=== PATIENT | female | born 1965 | race Hispanic/Latino ===

== ENCOUNTER 2019-08-10 02:17 | Emergency (ER) | payer OTHER ==
[~2019-08-10] VITALS: Ht 162.6 cm; Wt 68.0 kg
[2019-08-10] MEDS ORDERED: SODIUM CHLORIDE 0.9% 1000ML 1,000 ML IV STA (02:23)
[2019-08-10] MEDS ORDERED: KETOROLAC TROMETHAMINE 30 MG/ML VIAL IV STA (02:23)
[2019-08-10] MEDS ORDERED: ONDANSETRON HCL INJ 2MG/ML 2ML 2 MG/ML VIAL IV STA (02:23)
[2019-08-10 02:49] LABS: BASOPHILS # (AUTO) 0.1 (0.0-0.1); BASOPHILS % 0.6 % (0.0-1.0); EOSINOPHILS # (AUTO) 0.3 (0.0-0.4); EOSINOPHILS % 2.5 % (0.0-6.0); HEMATOCRIT 36.5 % (34.2-44.1); HEMOGLOBIN 12.2 g/dL (12.0-16.0); LYMPHOCYTES # (AUTO) 4.9 (1.0-3.2); LYMPHOCYTES % 49.1 % (18.0-39.1); MEAN CORPUSCULAR HEMOGLOBIN 30.7 pg (28-32); MEAN CORPUSCULAR HGB CONC 33.4 g/dL (31-35); MEAN CORPUSCULAR VOLUME 91.7 fL (81-99); MONOCYTES # (AUTO) 0.5 (0.2-0.8); MONOCYTES % 5.1 % (4.4-11.3); NEUTROPHILS # (AUTO) 4.2 (2.1-6.9); NEUTROPHILS % 42.3 % (38.7-80.0); PLATELET COUNT 269 x10e3/uL (140-360); RED BLOOD COUNT 3.98 x10e6/uL (3.6-5.1); RED CELL DISTRIBUTION WIDTH 12.7 % (11.7-14.4)
[2019-08-10 03:08] LABS: ALANINE AMINOTRANSFERASE 25 IU/L (0-55); ALBUMIN 4.3 g/dL (3.5-5.0); ALBUMIN/GLOBULIN RATIO 1.3 (0.8-2.0); ALKALINE PHOSPHATASE 92 IU/L (40-150); BLOOD UREA NITROGEN 14 mg/dL (7-26); BUN/CREATININE RATIO 17 (6-25); CALCIUM 9.9 mg/dL (8.4-10.2); CARBON DIOXIDE 25 mmol/L (22-29); CHLORIDE 104 mmol/L (98-107); CREATININE, SERUM 0.82 mg/dL (0.57-1.11); EST GLOMERULAR FILTRATION RATE > 60 ML/MIN (60-); GLUCOSE 132 mg/dL (74-118); SODIUM 140 mmol/L (136-145)
[2019-08-10 03:20] LABS: COLOR,URINE YELLOW (YELLOW); LEUKOCYTE ESTERASE ,URINE TRACE (NEGATIVE); NITRITE,URINE NEGATIVE (NEGATIVE); PROTEIN,URINE DIPSTICK NEGATIVE (NEGATIVE)
[2019-08-10 03:21] LABS: BILIRUBIN,URINE NEGATIVE (NEGATIVE); CLARITY,URINE CLOUDY (CLEAR); KETONES,URINE 1+ (NEGATIVE); URINE UROBILINOGEN 0.2 mg/dL (0.2 - 1)
[2019-08-10 03:28] LABS: BACTERIA,URINE FEW /HPF; EPITHELIAL CELLS,URINE FEW /LPF; RBC,URINE 21-50 /HPF (0-5); TRANSITIONAL EPI CELLS,URINE FEW; WBC,URINE (MAN) 21-50 /HPF (0-5)
--- NOTE | 2019-08-10 04:09 | Diagnostic Imaging Report ---
EXAM: CT Abdomen and Pelvis WITHOUT contrast INDICATION: Left flank pain, query renal stone. COMPARISON: None. TECHNIQUE: Abdomen and pelvis were scanned utilizing a multidetector helical scanner from the lung base to the pubic symphysis without administration of IV contrast. Absence of intravenous contrast decreases sensitivity for detection of focal lesions and vascular pathology. Coronal and sagittal reformations were obtained. Stone protocol is performed. IV CONTRAST: None. ORAL CONTRAST: None RADIATION DOSE: Total DLP: 347 mGy*cm Estimated effective dose: (DLP x 0.015 x size factor) mSv COMPLICATIONS: None FINDINGS: LINES and TUBES: None. LOWER THORAX: Minimal dependent atelectasis. HEPATOBILIARY: Diffuse mild hepatic steatosis. No focal hepatic lesions. No biliary ductal dilation. GALLBLADDER: No radio-opaque stones or sludge. No wall thickening. SPLEEN: No splenomegaly. PANCREAS: No focal masses or ductal dilatation. ADRENALS: No adrenal nodules KIDNEYS/URETERS: There is a 3 mm left posterior bladder stone near the UVJ. Mild left hydronephrosis and hydroureter. Nonobstructing 2 mm left mid pole renal stone. GI TRACT: No abnormal distention, wall thickening, or evidence of bowel obstruction. Appendix is normal. Colonic diverticulosis without evidence of diverticulitis. PELVIC ORGANS/BLADDER: A 3 mm left posterior bladder stone near the UVJ. LYMPH NODES: No lymphadenopathy. VESSELS: Unremarkable. PERITONEUM / RETROPERITONEUM: No free air or fluid. BONES: Unremarkable. SOFT TISSUES: Tiny fat-containing umbilical hernia. IMPRESSION: A 3 mm left posterior bladder stone near the UVJ. Mild left hydronephrosis and hydroureter. Additional nonobstructing left nephrolithiasis. Diffuse mild hepatic steatosis. Signed by: Dr. Almas Sen MD on 08/10/2019 4:05 AM
[2019-08-10 04:28] VITALS: BP 112/88
== END 2019-08-10 05:06 | disposition home or self-care (01) ==
LOC: ER 02:17
DX: M54.5 Low back pain (principal); R11.2 Nausea with vomiting, unspecified; N20.1 Calculus of ureter
CPT/HCPCS: 36415; 74176; 80053; 81001; 85025; 96374; 96375; 99284; J1885; J2405; J7030

== ENCOUNTER 2020-06-15 09:29 | Emergency (ER) | payer OTHER ==
[~2020-06-15] VITALS: Ht 162.6 cm; Wt 68.0 kg
[2020-06-15 10:11] LABS: BASOPHILS % 0.7 % (0.0-1.0); EOSINOPHILS # (AUTO) 0.1 (0.0-0.4); EOSINOPHILS % 2.2 % (0.0-6.0); HEMATOCRIT 38.5 % (34.2-44.1); HEMOGLOBIN 12.4 g/dL (12.0-16.0); LYMPHOCYTES # (AUTO) 2.1 (1.0-3.2); LYMPHOCYTES % 38.9 % (18.0-39.1); MEAN CORPUSCULAR HEMOGLOBIN 30.4 pg (28-32); MEAN CORPUSCULAR HGB CONC 32.2 g/dL (31-35); MEAN CORPUSCULAR VOLUME 94.4 fL (81-99); MONOCYTES # (AUTO) 0.4 (0.2-0.8); MONOCYTES % 7.2 % (4.4-11.3); NEUTROPHILS # (AUTO) 2.8 (2.1-6.9); NEUTROPHILS % 50.8 % (38.7-80.0); PLATELET COUNT 268 x10e3/uL (140-360); RED BLOOD COUNT 4.08 x10e6/uL (3.6-5.1); RED CELL DISTRIBUTION WIDTH 12.7 % (11.7-14.4)
[2020-06-15 10:38] LABS: ALANINE AMINOTRANSFERASE 22 IU/L (0-55); ALBUMIN 4.3 g/dL (3.5-5.0); ALBUMIN/GLOBULIN RATIO 1.3 (0.8-2.0); ALKALINE PHOSPHATASE 96 IU/L (40-150); ANION GAP 12.8 mmol/L (8-16); BLOOD UREA NITROGEN 14 mg/dL (7-26); BUN/CREATININE RATIO 16 (6-25); CALCIUM 9.5 mg/dL (8.4-10.2); CARBON DIOXIDE 24 mmol/L (22-29); CHLORIDE 108 mmol/L (98-107); CREATININE, SERUM 0.86 mg/dL (0.57-1.11); EST GLOMERULAR FILTRATION RATE > 60 ML/MIN (60-); GLUCOSE 73 mg/dL (74-118); POTASSIUM 3.8 mmol/L (3.5-5.1); SODIUM 141 mmol/L (136-145)
[2020-06-15 11:54] VITALS: BP 129/59
== END 2020-06-15 11:58 | disposition home or self-care (01) ==
LOC: ER 09:40
DX: R07.89 Other chest pain (principal); R06.02 Shortness of breath; N80.9 Endometriosis, unspecified; Z87.442 Personal history of urinary calculi
CPT/HCPCS: 36415; 71045; 80053; 83880; 84484; 85025; 85379; 93005; 99284

== ENCOUNTER 2020-10-09 22:00 | Emergency (ER) | payer OTHER | END 2020-10-10 00:16 | disposition home or self-care (01) | LOC: ER 22:20 | DX: R51.9 Headache, unspecified (principal) | CPT/HCPCS: 70450; 99283 ==

== ENCOUNTER 2020-10-16 21:22 | Emergency (ER) | payer OTHER ==
[~2020-10-16] VITALS: Ht 162.6 cm; Wt 68.0 kg
[2020-10-16] MEDS ORDERED: DIAZEPAM 2 MG TAB PO ONE (21:45)
[2020-10-16] MEDS ORDERED: DIAZEPAM 5 MG TAB ONE (21:58)
[2020-10-16] MEDS ORDERED: IBUPROFEN 600 MG TAB PO STA (22:05)
[2020-10-16] MEDS ORDERED: IBUPROFEN 600 MG TAB ONE (22:07)
[2020-10-16 22:17] LABS: CLARITY,URINE CLEAR (CLEAR); COLOR,URINE STRAW (YELLOW); KETONES,URINE NEGATIVE (NEGATIVE); LEUKOCYTE ESTERASE ,URINE TRACE (NEGATIVE); NITRITE,URINE NEGATIVE (NEGATIVE); PROTEIN,URINE DIPSTICK NEGATIVE (NEGATIVE); URINE UROBILINOGEN 0.2 mg/dL (0.2 - 1)
[2020-10-16 22:24] LABS: BACTERIA,URINE FEW /HPF; EPITHELIAL CELLS,URINE RARE /LPF; RBC,URINE 0-5 /HPF (0-5)
== END 2020-10-16 23:10 | disposition home or self-care (01) ==
LOC: ER 21:44
DX: F41.9 Anxiety disorder, unspecified (principal); N80.9 Endometriosis, unspecified; Z87.442 Personal history of urinary calculi
CPT/HCPCS: 81001; 99283